=== PATIENT | female | born 1975 ===

== ENCOUNTER 2024-12-09 07:28 | Outpatient (CLI) | payer OTHER | END 2024-12-09 07:36 | disposition home or self-care (01) | LOC: RAD 07:28 | PROVIDERS: ATTEND Internal Medicine Endocrinology, Diabetes & Metabolism | DX: K74.00 Hepatic fibrosis, unspecified (principal); K74.01 Hepatic fibrosis, early fibrosis; R10.2 Pelvic and perineal pain; E04.1 Nontoxic single thyroid nodule; J45.40 Moderate persistent asthma, uncomplicated ==